=== PATIENT | male | born 1985 | race African-American/Black ===

== ENCOUNTER → 2017-02-10 20:40 | Emergency (ER) | payer OTHER ==
[2017-02-10 19:00] LABS: INFLUENZA A NEG (NEG); INFLUENZA B NEG (NEG)
[~2017-02-10 20:40] MED LIST: AMOXIL500 M1 PO; BACTRIM DS TABL1 TAB PO; K-DUR20 ME1 PO; NO MEDICATIONS; PEPCID AC20 M2 PO; PHENERGAN25 M1 PO; PHENERGAN25 MG PO; ZOFRAN ODT4 M1 PO; ZOFRAN ODT4 MG PO; ZOFRAN PO
== END | disposition home or self-care (01) ==
LOC: SED 20:40
PROVIDERS: Emergency Medicine
DX: J06.9 Acute upper respiratory infection, unspecified (principal)
CPT/HCPCS: 87651; 87804; 99282

== ENCOUNTER 2017-02-27 14:58 | Emergency (ER) | payer OTHER ==
[~2017-02-27 14:58] MED LIST changes: -PEPCID AC20 M2 PO; -ZOFRAN ODT4 M1 PO
[2017-02-27 15:16] LABS: BUN/CREATININE RATIO 11.25; CALCIUM SERUM 9.5 mg/dL (8.4-10.2); CREATININE SERUM 0.8 mg/dL (0.6-1.4); GLOM FILT RATE Estimated 137.1 mL/min (>60); POTASSIUM 3.6 mmol/L (3.5-5.1)
[2017-02-27 15:45] LABS: URINE SOURCE CLEAN CATCH
[2017-02-27 15:47] LABS: URINE APPEARANCE CLEAR; URINE BILIRUBIN NEG (NEG); URINE BLOOD NEG (NEG); URINE COLOR YELLOW; URINE GLUCOSE NEG (NORM); URINE LEUKOCYTE ESTERASE NEG (NEG); URINE NITRATE NEG (NEG); URINE PROTEIN TRACE (NEG)
[2017-02-27 15:50] LABS: MICRO INDICATED? NO; URINE KETONE 2+ (NEG)
[2017-02-27] MEDS ORDERED: PEPCID AC20 M2 PO (16:21)
[2017-02-27] MEDS ORDERED: ZOFRAN ODT4 M1 PO (16:21)
== END 2017-02-27 16:31 | disposition home or self-care (01) ==
LOC: SED 14:58
PROVIDERS: Emergency Medicine
DX: K29.00 Acute gastritis without bleeding (principal); E88.89 Other specified metabolic disorders
CPT/HCPCS: 36415; 80048; 81003; 96372; 96374; 96375; 99284; J0500; J2405